=== PATIENT | female | born 1975 | race Caucasian/White ===

== ENCOUNTER → 2019-02-23 | Day surgery (SDC) | payer OTHER ==
[2019-02-20 11:34] LABS: BASOPHILS # (AUTO) 0.1 (0.0-0.1); BASOPHILS % 2.3 % (0.0-1.0); EOSINOPHILS # (AUTO) 0.4 (0.0-0.4); EOSINOPHILS % 6.7 % (0.0-6.0); HEMATOCRIT 42.1 % (34.2-44.1); HEMOGLOBIN 13.4 g/dL (12.0-16.0); LYMPHOCYTES # (AUTO) 2.1 (1.0-3.2); MEAN CORPUSCULAR HEMOGLOBIN 28.8 pg (28-32); MEAN CORPUSCULAR HGB CONC 31.8 g/dL (31-35); MEAN CORPUSCULAR VOLUME 90.3 fL (81-99); MONOCYTES # (AUTO) 0.5 (0.2-0.8); MONOCYTES % 8.7 % (4.4-11.3); NEUTROPHILS # (AUTO) 2.2 (2.1-6.9); NEUTROPHILS % 42.1 % (38.7-80.0); PLATELET COUNT 205 x10e3/uL (140-360); RED BLOOD COUNT 4.66 x10e6/uL (3.6-5.1); RED CELL DISTRIBUTION WIDTH 13.2 % (11.7-14.4)
--- NOTE | 2019-02-20 11:46 | Diagnostic Imaging Report ---
EXAMINATION: CHEST 2 VIEWS INDICATION: Pre-operative COMPARISON: None FINDINGS: LINES/TUBES:None LUNGS:The lungs are well-inflated. No focal consolidation or pulmonary edema. PLEURA:No pleural effusion or pneumothorax. MEDIASTINUM:The cardiomediastinal silhouette appears normal in size and shape. BONES/SOFT TISSUES:No acute osseous injury. ABDOMEN:No free air under the diaphragm. IMPRESSION: No focal pneumonia or pulmonary edema. Signed by: Erum Abraham MD on 02/20/2019 11:43 AM
[2019-02-20 11:59] LABS: ANION GAP 13.3 mmol/L (8-16); BLOOD UREA NITROGEN 8 mg/dL (7-26); BUN/CREATININE RATIO 11 (6-25); CALCIUM 9.7 mg/dL (8.4-10.2); CARBON DIOXIDE 25 mmol/L (22-29); CHLORIDE 106 mmol/L (98-107); CREATININE, SERUM 0.72 mg/dL (0.57-1.11); EST GLOMERULAR FILTRATION RATE > 60 ML/MIN (60-); GLUCOSE 85 mg/dL (74-118); POTASSIUM 4.3 mmol/L (3.5-5.1); SODIUM 140 mmol/L (136-145)
[2019-02-20 12:23] LABS: EOSINOPHILS % (MANUAL) 1 % (0-7); LYMPHOCYTES % (MANUAL) 42 % (19-48); MONOCYTES % (MANUAL) 12 % (3.4-9.0); NEUTROPHILS % (MANUAL) 43 % (40-74)
[2019-02-20 12:24] LABS: PLATELET ESTIMATE ADEQUATE; PLATELET MORPHOLOGY COMMENT NORMAL; RBC MORPHOLOGY COMMENT NORMAL
[~2019-02-23] MED LIST: BUPIVACAINE HCL 0.5% INJ 30 ML VIAL INJ ONE; CEFAZOLIN SOD 1 GM/NS 50ML 50 ML IV ONE; CORTISOL PO; DEXAMETHASONE SOD PHOS INJ 4 MG/ML VIAL ONE; FENTANYL CITRATE/PF 100MCG/2 ML INJ ONE; LIDOCAINE HCL 2% LOCAL INJ 5 ML SDV VIAL INJ ONE; MIDAZOLAM HCL 2 MG/2 ML VIAL ONE; NEOSTIGMINE 1 MG/ML 10ML VIAL ONE; ONDANSETRON HCL INJ 2MG/ML 2ML 2 MG/ML VIAL ONE; PROGESTERONE100 MG PO; PROPOFOL IV EMULSION 10 MG/ML 20 ML VIAL ONE; SEVOFLURANE INHAL SOLN 250 ML PEN BTL ONE; T3/T4 PO; ZYRTEC10 MG PO; [UNRECOGNIZED DRUG - OTHER] PO
--- OUTSIDE RECORDS SUMMARY | 2019-02-23 06:07 | XMS REPORT ---
Author Author [facility] Address Unknown Phone Unavailable Care Team Providers Care Endo Tech Name Role Phone NATE HAGER Unavailable Unavailable Payers Payer Name Policy Type Policy Number Effective Date Expiration Date Problems This patient has no known problems. Allergies, Adverse Reactions, Alerts Allergy Name Allergy Type Status Severity Reaction(s) Onset Date Inactive Date Treating Clinician Comments No Known Contrast Allergies DA Active U 2006-09-16 00:00:00 No Known Drug Allergies DA Active U 2006-09-16 00:00:00 No Known Food Allergies DA Active U 2006-09-16 00:00:00 No Known Other Allergies DA Active U 2006-09-16 00:00:00 No Known Drug Intolerances DA Active U 2001-11-06 00:00:00 Medications This patient has no known medications. Results Test Description Test Time Test Comments Text Results Atomic Results Result Comments CHEST 2 VIEWS 2019-02-20 11:42:00 [place] [id number] Patient Name: ROSSANA LUEVANO MR #: [id number] : 1975 Age/Sex: 43/F Req #: [id number] Adm Physician: Ordered by: NATE HAGER DPKatia Report #: [id number] Location: OR Room/Bed: Procedure: [id number] DX/CHEST 2 VIEWS Exam Date: Exam Time: REPORT STATUS: Signed EXAMINATION: CHEST 2 VIEWS INDICATION: Pre-operative COMPARISON: None FINDINGS: LINES/TUBES:None LUNGS:The lungs are well- inflated. No focal consolidation or pulmonary edema. PLEURA:No pleural effusion or pneumothorax. MEDIASTINUM:The cardiomediastinal silhouette appears normal in size and shape. BONES/SOFT TISSUES:No acute osseous injury. ABDOMEN:No free air under the diaphragm. IMPRESSION: No focal pneumonia or pulmonary edema. Signed by: Marina Abraham MD on 02/20/2019 11:43 AM Dictated By: MARINA ABRAHAM MD [id number] Transcribed By: JAMES on 02/20/19 1143 COPY TO: NATE HAGER DPM
--- NOTE | 2019-02-23 07:40 | NUR ---
SPIRITUAL CARE - Pre-Surgery Assessment: Pt in bed. Pt's at bedside. Pt reported supportive attention from family and friends. Intervention: I provided pastoral presence, hospitality, and sympathetic listening. I acquainted pt with availability of demolition expert while hospitalized. Outcome: Pt expressed appreciation for visit. No need for follow up indicated at this time. BRANDO Johnstonlain Spiritual Care Department O: [phone] Pager: [phone] ([phone] number calling from)
[2019-02-23 10:35] VITALS: BP 122/83
--- NOTE | 2019-02-23 20:24 | Operative Report ---
DATE OF PROCEDURE: 02/23/2019 SURGEON: Everardo Nguyễn DPM ROOM NUMBER: [facility] PREOPERATIVE DIAGNOSES: 1. Painful hardware, 5th metatarsal base of the left foot. 2. Cortical bone screws. POSTOPERATIVE DIAGNOSES: 1. Painful hardware, 5th metatarsal base of the left foot. 2. Cortical bone screws. TITLE OF THE OPERATION: Removal of the hardware, 5th metatarsal base of the left foot. ANESTHESIA: General endotracheal. HEMOSTASIS: A left thigh tourniquet at 350 mmHg PROCEDURE IN DETAIL: The patient was taken to the operating room, in a mildly sedated state, placed on the operating table in supine position. Following induction of general anesthetic, the foot was prepped and draped in the usual aseptic manner utilizing Betadine prep, foot was placed on the operating table prior to performing following procedure: Procedure #1: Removal of met base screw, 5th met left foot. A linear incision was made overlying the screws utilizing fluoroscopy to identify the screws, did have a significant bony overgrowth, which was removed with the rongeur, osteotome, and mallet, the area was irrigated. Screws removed and closure was 3-0 Vicryl, skin closure 4-0 nylon. The area of the surgery was then blocked with 0.5 Marcaine, Decadron [place]. Release of the pneumatic tourniquet showed normal hyperemic flush to all digits of the left foot. The patient left the operating room, vital signs are stable, in apparent satisfactory condition, having tolerated both anesthetic and the procedure very well. MADDISON Wu/EMILE /[id number]
== END | disposition home or self-care (01) ==
LOC: OR 06:02
PROVIDERS: ATTEND Podiatrist Foot Surgery
DX: T84.84XA Pain due to internal orthopedic prosthetic devices, implants and grafts, initial encounter (principal); G47.33 Obstructive sleep apnea (adult) (pediatric); R00.1 Bradycardia, unspecified; Y83.8 Other surgical procedures as the cause of abnormal reaction of the patient, or of later complication, without mention of misadventure at the time of the procedure; Z01.810 Encounter for preprocedural cardiovascular examination; Z01.812 Encounter for preprocedural laboratory examination; Z01.818 Encounter for other preprocedural examination
CPT/HCPCS: 20680; 36415; 71046; 80048; 81025; 85025; 93005; J0690; J1100; J2001; J2250; J2405; J2704; J2710; J3010; C1713